=== PATIENT | male | born 1960 | race Caucasian/White ===

== ENCOUNTER → 2016-05-14 | Day surgery (SDC) | payer OTHER ==
[~2016-05-14] VITALS: Ht 182.9 cm; Wt 143.0 kg
[~2016-05-14] MED LIST: ACET-654 PO; BACITRACIN PWD 50,000 UNITS VIAL As Ordered ONE; BACITRACIN PWD 50,000 UNITS VIAL IR ONE; BUPIVACAINE HCL 0.5% 10 ML VIAL As Ordered ONE; BUPIVACAINE HCL 0.5% 30 ML VIAL SC ONE; GABA600T PO; GLUC1CAP9 PO; HYDR25TAB PO; LIDOCAINE 2% MDV 20 ML VIAL As Ordered ONE; LIDOCAINE 2% MDV 20 ML VIAL SC ONE; LOSA25TA8 PO; LR 1,000 ML IV SCH; MIDAZOLAM INJ 2 MG/2 ML VIAL (J2250) As Ordered ONE; NEOSPORIN GU IRRIG 20 ML VIAL IR ONE; ONDANSETRON 4MG/2ML VIAL (J2405) As Ordered ONE; PROPOFOL 200 MG/20 ML VIAL As Ordered ONE; SIMV20TA2 PO; TOPR100T PO; dexameTHASONE 4 MG/ML 1ML VIAL (J1100) As Ordered ONE; ePHEDrine SULFATE 25 MG/5 ML(5MG/ML) SYRINGE As Ordered ONE; ePHEDrine SULFATE 25 MG/5 ML(5MG/ML) SYRINGE IV SCH; fentaNYL 100 MCG/2 ML INJECTION (J3010) As Ordered ONE; fentaNYL 100 MCG/2 ML INJECTION (J3010) IV PRN
[2016-05-14] MEDS: PERCOCET 5MG/325MG TAB PO PRN ×2 (14:56→15:48)
[2016-05-14 15:50] VITALS: BP 136/87
--- NOTE | 2016-05-14 20:39 | RO ---
DATE OF PROCEDURE: 05/14/2016 PREPROCEDURE DIAGNOSIS: Posterior tibial tendon dysfunction left foot. 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 OPERATIVE PROCEDURE: Tenolysis posterior tibial tendon left foot. SURGEON: Rip George DPM SIDEWALK REPAIRER: None. ANESTHESIA: Spinal. HEMOSTASIS: 5 pneumatic tourniquet at 300 mmHg. IMPLANTS UTILIZED: None. DESCRIPTION OF PROCEDURE: On 05/14/2016, this 56-year-old white male was taken from his hospital room to the operating room and placed on the operating room table in the supine position. Following the induction of IV sedation, local and regional anesthesia, the left lower extremity was prepped and draped in the usual aseptic manner. After spinal anesthesia was obtained, a thigh pneumatic tourniquet was placed on the patient's thigh and inflated to 300 mmHg. Sterile draping was completed and the following procedure was performed. TENOLYSIS POSTERIOR TIBIAL TENDON LEFT FOOT: Attention was directed to the patient's left foot where an incision was made from the distal aspect of the medial malleolus down to the insertion point of the posterior tibial tendon at the navicular. Dissection was carried down. Numerous veins were noted which were either cut, clamped, electrocoagulated or tied as necessary. Dissection was carried down to the tendon sheath. The tendon sheath was then opened and the tendon was inspected from the insertion point into the navicular to the medial malleolus. The distal 6 cm of the insertion point had considerable adhesions of the posterior tibial tendon with citlaly of the hyperplastic synovium. This was debrided off the posterior tibial tendon and the tendon sheath had a synovectomy performed. The wound was flushed with copious amounts of dilute bacitracin, neomycin and polymyxin B solution. No other abnormalities were noted at the posterior tibial tendon. Attention was directed towards closure where the tendon sheath was closed with #4-0 Monocryl in a running fashion. Subcutaneous tissues were coapted and maintained using #4-0 Monocryl in a simple interrupted type fashion. Skin incision was coapted and maintained using #4-0 Prolene in simple interrupted and horizontal mattress type fashion. Attention was directed toward bandaging with a sterile compressive bandage applied consisting of Adaptic, 4 x 4, 4 x 4 splints, Armani, Kerlix and Coban. Thigh tourniquet was rapidly deflated. Instantaneous capillary refill time was noted in digits 1 through 5 of the patients left foot. The patient having apparently tolerated the surgical procedure well was taken from the OR to the recovery room, vital signs stable, patient afebrile for further monitoring by the anesthesia department. All surgical specimens from the operative procedure sent to pathology for gross microscopic examination. Postoperative instructions upon discharge.
== END | disposition home or self-care (01) ==
LOC: M SDC 08:54
PROVIDERS: ATTEND Podiatrist
DX: M76.822 Posterior tibial tendinitis, left leg (principal); M12.872 Other specific arthropathies, not elsewhere classified, left ankle and foot; I10 Essential (primary) hypertension; E78.5 Hyperlipidemia, unspecified; G89.29 Other chronic pain; S39.92XS Unspecified injury of lower back, sequela; J45.909 Unspecified asthma, uncomplicated; E66.9 Obesity, unspecified; G47.30 Sleep apnea, unspecified; E78.00 Pure hypercholesterolemia, unspecified; Z87.891 Personal history of nicotine dependence; Z79.899 Other long term (current) drug therapy
CPT/HCPCS: 27680; 88300; 97116; J0690; J2250; J2405; J3010

== ENCOUNTER → 2018-06-08 | Outpatient (REF) ==
[~2018-06-08] MED LIST changes: -ACET-654 PO; +ACET1TAB55 PO; -BACITRACIN PWD 50,000 UNITS VIAL As Ordered ONE; -BACITRACIN PWD 50,000 UNITS VIAL IR ONE; -BUPIVACAINE HCL 0.5% 10 ML VIAL As Ordered ONE; -BUPIVACAINE HCL 0.5% 30 ML VIAL SC ONE; -GABA600T PO; +GABA600T4 PO; -LIDOCAINE 2% MDV 20 ML VIAL As Ordered ONE; -LIDOCAINE 2% MDV 20 ML VIAL SC ONE; +LOSA25TA14 PO; -LOSA25TA8 PO; -LR 1,000 ML IV SCH; -MIDAZOLAM INJ 2 MG/2 ML VIAL (J2250) As Ordered ONE; -NEOSPORIN GU IRRIG 20 ML VIAL IR ONE; -ONDANSETRON 4MG/2ML VIAL (J2405) As Ordered ONE; -PROPOFOL 200 MG/20 ML VIAL As Ordered ONE; -TOPR100T PO; +TOPR100T13 PO; -dexameTHASONE 4 MG/ML 1ML VIAL (J1100) As Ordered ONE; -ePHEDrine SULFATE 25 MG/5 ML(5MG/ML) SYRINGE As Ordered ONE; -ePHEDrine SULFATE 25 MG/5 ML(5MG/ML) SYRINGE IV SCH; -fentaNYL 100 MCG/2 ML INJECTION (J3010) As Ordered ONE; -fentaNYL 100 MCG/2 ML INJECTION (J3010) IV PRN
--- NOTE | 2018-06-09 02:18 | REP ---
Clinical: Pain and disability. Technique: AP, lateral, coned-down views of the lumbosacral spine. Findings: Chronic levoconvex scoliosis is appreciated along with moderate/early advanced multilevel degenerative changes. Findings include endplate sclerosis, osteophytosis, and hypertrophic facet changes. Disc space narrowing at L5-S1 also identified. No acute fracture / compression injury or subluxation. Impression: Moderate/early advanced multilevel degenerative changes. Findings most pronounced at L5-S1. Electronically Signed by Dallas Echavarria MD 06/09/2018 02:09 A
--- NOTE | 2018-06-09 02:22 | REP ---
Clinical: Pain and disability. Technique: AP, lateral, bilateral oblique and sunrise views of the right knee. Findings: Moderate tricompartmental osteoarthritic degenerative changes are appreciated. Findings include subchondral sclerosis, joint space narrowing, marginal spurring. Lateral and sunrise views also demonstrate fraying along the anterior patellar margin as well as subchondral sclerosis along the posterior patellar surface and associated patellofemoral joint space narrowing. Evidence for prior orthopedic repair with surgical device along the distal lateral femoral metaphysis. No acute fracture dislocation. No obvious effusion. Impression: Moderate tricompartmental osteoarthritic degenerative changes. Electronically Signed by Dallas Echavarria MD 06/09/2018 02:13 A
== END ==
LOC: M SMT 11:41
PROVIDERS: ATTEND Internal Medicine
DX: Z02.89 Encounter for other administrative examinations (principal)

== ENCOUNTER → 2019-01-23 | Outpatient (CLI) | payer OTHER ==
[~2019-01-23] MED LIST changes: +TOPR100T PO; -TOPR100T13 PO
--- NOTE | 2019-01-23 18:57 | REP ---
Clinical: History of pulmonary embolus . Technique: Clay scale and color Doppler evaluation of the bilateral lower extremities using linear high frequency transducer. Findings: There is no evidence for deep venous thrombosis involving the right lower extremity. There is minimal echogenic nonocclusive material in the left popliteal vein which may represent chronic thrombus. Impression: 1. Right lower extremity without the venous thrombosis. 2. Left lower extremity suggests small amount of chronic nonocclusive thrombus in the popliteal vein. Electronically Signed by Dallas Echavarria MD 01/23/2019 06:49 P
== END ==
LOC: M RAD 09:45 → MERGE 10:30
PROVIDERS: ATTEND Internal Medicine Pulmonary Disease
DX: I26.09 Other pulmonary embolism with acute cor pulmonale (principal)

== ENCOUNTER → 2019-03-30 | Outpatient (CLI) | payer OTHER ==
[~2019-03-30] MED LIST changes: -SIMV20TA2 PO; +SIMV20TA22 PO
--- NOTE | 2019-03-30 15:31 | REP ---
Bilateral lower extremity Duplex Doppler venous ultrasound: Real time compression and duplex Doppler interrogation of the bilateral lower extremity deep venous system is performed. Bilaterally, the common femoral, superficial femoral and popliteal veins are fully compressible with transducer pressure and demonstrate normal spontaneous and phasic flow, without evidence of deep venous thrombosis. Impression: No evidence of deep venous thrombosis of the bilateral lower extremity femoral popliteal venous system. Electronically Signed by Rick Clay MD 03/30/2019 03:23 P
== END ==
LOC: M RAD 14:44
PROVIDERS: ATTEND Internal Medicine Pulmonary Disease
DX: I26.09 Other pulmonary embolism with acute cor pulmonale (principal)

== ENCOUNTER 2020-04-08 12:50 | Emergency (ER) | payer OTHER ==
[~2020-04-08] VITALS: Ht 182.9 cm; Wt 173.3 kg
[2020-04-08 14:18] LABS: BASO % 0.5 % (0.0-1.0); EOS # 0.2 10^3/uL (0.0-0.5); HEMATOCRIT 33.9 % (42.0-52.0); HEMOGLOBIN 10.6 g/dl (13.5-17.5); LYMPH % 16.6 % (24.0-44.0); MEAN CORPUSCULAR HEMOGLOBIN 28.6 pg (27.0-33.0); MEAN CORPUSCULAR HGB CONC 31.3 g/dl (32.0-36.5); MEAN CORPUSCULAR VOLUME 91.6 fl (80.0-96.0); MONO # 0.5 10^3/uL (0.0-0.8); NEUTROPHILS % 69.6 % (36.0-66.0); PLATELET COUNT, AUTOMATED 195 10^3/uL (150-450); WHITE BLOOD COUNT 5.8 10^3/uL (4.0-10.0)
[2020-04-08 14:36] LABS: INR 1.05; PROTHROMBIN TIME 13.9 SECONDS (12.5-14.3)
[2020-04-08 14:37] LABS: PARTIAL THROMBOPLASTIN TIME 31.4 SECONDS (24.2-38.5)
[2020-04-08 14:39] LABS: D-DIMER QUANT 1053.17 ng/ml (<500)
[2020-04-08 15:12] LABS: ALBUMIN 3.7 GM/DL (3.2-5.2); ALT/SGPT 35 U/L (12-78); BILIRUBIN,TOTAL 0.7 MG/DL (0.2-1.0); BLOOD UREA NITROGEN 14 MG/DL (7-18); C REACTIVE PROTEIN QUANTITATIV 1.21 MG/DL (0.00-0.30); CALCIUM LEVEL 8.9 MG/DL (8.8-10.2); CARBON DIOXIDE LEVEL 30 MEQ/L (21-32); CHLORIDE LEVEL 107 MEQ/L (98-107); CPK CREATINE PHOSPHOKINASE 246 U/L (39-308); FERRITIN 183 NG/ML (26-388); GLOMERULAR FILTRATION RATE > 60.0 (>49); GLUCOSE, FASTING 101 MG/DL (70-100); LDH LACTATE DEHYDROGENASE 211 U/L (87-241); MAGNESIUM LEVEL 2.3 MG/DL (1.8-2.4); MB/CK RELATIVE INDEX 2.03 (< OR =4); POTASSIUM SERUM 3.8 MEQ/L (3.5-5.1); SODIUM LEVEL 140 MEQ/L (136-145); TOTAL PROTEIN 6.9 GM/DL (6.4-8.2); TROPONIN I < 0.02 NG/ML (< 0.10)
[2020-04-08 16:00] LABS: NT-PRO BNP 572 PG/ML (<125)
--- NOTE | 2020-04-08 16:08 | REP ---
INDICATION: Coronavirus workup COMPARISON: None. TECHNIQUE: Portable AP view of the chest FINDINGS: The mediastinum and cardiac silhouette are within normal limits for portable technique. The lung sol demonstrate chronic changes and calcified granulomata. No focal consolidation, effusion, or pneumothorax. IMPRESSION: No definite acute consolidation or effusion. <Electronically signed by Dallas Echavarria > 04/08/20 [id number]
--- NOTE | 2020-04-08 16:48 | REP ---
INDICATION: ro dvt. COMPARISON: Comparison studies are from March 30, 2019 and January 23, 2019.. TECHNIQUE: Bilateral lower extremity duplex venous sonography. FINDINGS: The deep veins are anechoic and fully compressible from the groin to the popliteal fossa in the right lower extremity. Color flow imaging is homogeneous. Spectral Doppler interrogation demonstrates intact respiratory variation in flow and normal manual augmentation of flow. There is no evidence of deep vein thrombosis on the right. In the left lower extremity, the deep veins are anechoic and fully compressible from the groin to the distal femoral vein segment. The popliteal vein on the left is fully compressible. There is a thin linear echogenic structure in the popliteal vein on the left consistent with chronic DVT. I note that the prior study from January 23, 2019 showed a left popliteal vein DVT. No acute venous thrombosis is suspected today. IMPRESSION: Thin linear echogenic structure in the left popliteal vein consistent with changes of chronic DVT. No evidence of acute deep vein thrombosis on either side.. <Electronically signed by John Dsouza > 04/08/20 [id number]
[2020-04-08] MEDS ORDERED: FUROSEMIDE 100MG/10ML VIAL (J1940) IV ONE (17:30)
[2020-04-08] MEDS ORDERED: ISOVUE-370 76% 100ML VIAL As Ordered ONE (18:32)
--- NOTE | 2020-04-08 19:18 | REPVR ---
PROCEDURE INFORMATION: Exam: CT Angiography Chest With Contrast Exam date and time: 04/08/2020 6:42 PM Age: 59 years old Clinical indication: Shortness of breath; Additional info: SOB elev d dimer, covid neg TECHNIQUE: Imaging protocol: Computed tomographic angiography of the chest with intravenous contrast. 3D rendering (Not supervised by radiologist): MIP and/or 3D reconstructed images were created by the technologist. Radiation optimization: All CT scans at this facility use at least one of these dose optimization techniques: automated exposure control; mA and/or kV adjustment per patient size (includes targeted exams where dose is matched to clinical indication); or iterative reconstruction. Contrast material: ISOVUE 370; Contrast volume: 75 ml; Contrast route: INTRAVENOUS (IV); COMPARISON: CR PORTABLE CHEST X-RAY 04/08/2020 3:42 PM FINDINGS: Pulmonary arteries: There is a pulmonary embolus demonstrated in the distal portion of the intralobar pulmonary artery and proximal branch arteries of the left lower lobe. Aorta: There is mild atherosclerosis in the thoracic aorta. There is fusiform dilatation of the ascending thoracic aorta which measures 4 cm. maximally. There is no dissection or saccular component. Lungs: Reticular infiltrate subpleural aspect of the right middle lobe. Compressive atelectasis both lung bases. Pleural space: Small bilateral pleural effusions. Heart: Unremarkable. No cardiomegaly. No pericardial effusion. Lymph nodes: Unremarkable. No enlarged lymph nodes. Bones/joints: The spine demonstrates mild degenerative changes. Soft tissues: Unremarkable. IMPRESSION: 1. Reticular infiltrate subpleural aspect of the right middle lobe. Lungs otherwise clear. 2. Small bilateral pleural effusions. 3. There is fusiform dilatation of the ascending thoracic aorta which measures 4 cm. maximally. There is no dissection or saccular component. 4. There is a pulmonary embolus demonstrated in the distal portion of the intralobar pulmonary artery and proximal branch arteries of the left lower lobe. A critical call has been made to speak with the ordering physician/practitioner. This report will be amended once consultation has occurred. Electronically signed by: Je Harley On 04/08/2020 19:18:37 PM
[2020-04-08] MEDS ORDERED: APIXABAN 5 MG TAB (ELIQUIS) PO ONE (19:30)
[2020-04-08] MEDS ORDERED: ELIQ5TAB PO (20:36)
[2020-04-08] MEDS ORDERED: HYDR25TAB PO (20:37)
[2020-04-08 20:40] VITALS: BP 128/62
--- NOTE | 2020-04-09 06:17 | ECGEPIP ---
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
== END 2020-04-08 20:55 | disposition home or self-care (01) ==
LOC: M ED 12:50
DX: I26.99 Other pulmonary embolism without acute cor pulmonale (principal); I50.9 Heart failure, unspecified; I10 Essential (primary) hypertension; G47.30 Sleep apnea, unspecified; Z86.711 Personal history of pulmonary embolism; F17.200 Nicotine dependence, unspecified, uncomplicated; Z79.899 Other long term (current) drug therapy
CPT/HCPCS: 36600; 71045; 71275; 80053; 81001; 82550; 82553; 82728; 82803; 83605; 83615; 83735; 83880; 84145; 84484; 85025; 85379; 85384; 85610; 85730; 86140; 87040; 87486; 87581; 87633; 87798; 87880; 93005; 93970; 96374; 99284; J1940; Q9967

== ENCOUNTER → 2022-09-17 | Outpatient (CLI) | payer MEDICARE, OTHER ==
[~2022-09-17] MED LIST changes: +ELIQ5TAB PO; +HYDR-3490 PO; -HYDR25TAB PO; +LOSA25TA13 PO; -LOSA25TA14 PO
== END ==
LOC: M RAD 09:31
PROVIDERS: ATTEND Surgery
DX: I87.312 Chronic venous hypertension (idiopathic) with ulcer of left lower extremity (principal); L97.222 Non-pressure chronic ulcer of left calf with fat layer exposed

== ENCOUNTER → 2022-11-18 | Outpatient (CLI) | payer MEDICARE, OTHER | LOC: M RAD 07:07 | PROVIDERS: ATTEND Surgery Vascular Surgery | DX: I83.022 Varicose veins of left lower extremity with ulcer of calf (principal); R93.9 Diagnostic imaging inconclusive due to excess body fat of patient; L97.229 Non-pressure chronic ulcer of left calf with unspecified severity ==

== ENCOUNTER 2023-01-29 09:45 | Outpatient (RCR) | payer MEDICARE, OTHER | END 2023-02-02 | LOC: M PT 09:45 | PROVIDERS: ATTEND Physician Assistant | DX: I89.0 Lymphedema, not elsewhere classified (principal) ==

== ENCOUNTER → 2023-02-09 | Outpatient (CLI) | payer MEDICARE, OTHER ==
[~2023-02-09] MED LIST changes: +AMLO25TA PO; +DULO1CAP6 PO; +FLOM0.4C39 PO; +IRBE300T7 PO; +LABE200T5 PO; +LIDOCAINE 1% MDV 20ML VIAL As Ordered ONE; +LIDOCAINE W/EPINEPHRINE 1% 20ML VIAL As Ordered ONE; +MIDAZOLAM INJ 2MG/2ML VIAL As Ordered ONE; +OMEG1CAP85 PO; +ONETAB9 PO; +SODIUM BICARBONATE 8.4% INJ 50MEQ 50ML VIAL As Ordered ONE; +fentaNYL 100 MCG/2 ML INJECTION As Ordered ONE
[2023-02-09 07:50] VITALS: TEMP 98.4
[2023-02-09 08:14] LABS: HEMATOCRIT 34.3 % (42.0-52.0); HEMOGLOBIN 11.3 g/dl (13.5-17.5); MEAN CORPUSCULAR HEMOGLOBIN 28.5 pg (27.0-33.0); MEAN CORPUSCULAR HGB CONC 32.9 g/dl (32.0-36.5); MEAN CORPUSCULAR VOLUME 86.4 fl (80.0-96.0); PLATELET COUNT, AUTOMATED 224 10^3/uL (150-450); RED BLOOD COUNT 3.97 10^6/uL (4.30-6.10); WHITE BLOOD COUNT 5.8 10^3/uL (4.0-10.0)
[2023-02-09 08:35] LABS: BLOOD UREA NITROGEN 16 MG/DL (9-23); CALCIUM LEVEL 9.3 MG/DL (8.3-10.6); CARBON DIOXIDE LEVEL 28 MMOL/L (20-31); CHLORIDE LEVEL 104 MMOL/L (98-107); CREATININE FOR GFR 0.71 MG/DL (0.70-1.30); GLOMERULAR FILTRATION RATE > 60.0 (>49); GLUCOSE, FASTING 114 MG/DL (74-106); POTASSIUM SERUM 3.7 MMOL/L (3.5-5.1); SODIUM LEVEL 141 MMOL/L (136-145)
[2023-02-09 13:00] VITALS: BP 129/58; O2SAT 95
== END ==
LOC: M IRPRO 07:42
PROVIDERS: ATTEND Surgery Vascular Surgery
DX: I83.892 Varicose veins of left lower extremity with other complications (principal); I87.2 Venous insufficiency (chronic) (peripheral)
CPT/HCPCS: 36475; 80048; 85027; 99152; 99153; J2250; J3010

== ENCOUNTER 2023-02-10 14:30 | Outpatient (RCR) | payer MEDICARE, OTHER ==
[~2023-02-10 14:30] MED LIST changes: -LIDOCAINE 1% MDV 20ML VIAL As Ordered ONE; -LIDOCAINE W/EPINEPHRINE 1% 20ML VIAL As Ordered ONE; -MIDAZOLAM INJ 2MG/2ML VIAL As Ordered ONE; -SODIUM BICARBONATE 8.4% INJ 50MEQ 50ML VIAL As Ordered ONE; -fentaNYL 100 MCG/2 ML INJECTION As Ordered ONE
== END 2023-03-04 ==
LOC: M PT 14:30
PROVIDERS: ATTEND Physician Assistant
DX: I89.0 Lymphedema, not elsewhere classified (principal)

== ENCOUNTER → 2023-02-12 | Outpatient (CLI) | payer MEDICARE, OTHER | LOC: M WHC 07:21 | PROVIDERS: ATTEND Surgery Vascular Surgery | DX: Z98.890 Other specified postprocedural states (principal); I83.892 Varicose veins of left lower extremity with other complications; I87.2 Venous insufficiency (chronic) (peripheral) ==

== ENCOUNTER → 2023-05-28 | Outpatient (CLI) | payer MEDICARE, OTHER ==
[~2023-05-28] MED LIST changes: +E-Z-GAS II EFFERVESCENT PACKET (SODIUM BICARB./CITRIC ACID/SIMETHICONE) As Ordered ONE; +E-Z-HD 98% w/w 340GM SUSP BTL As Ordered ONE; +E-Z-PAQUE 96% w/w SUSP 176GM BTL As Ordered ONE; +IRBE300T25 PO; -IRBE300T7 PO
== END ==
LOC: M RAD 10:03
PROVIDERS: ATTEND Physician Assistant Medical
DX: R13.10 Dysphagia, unspecified (principal); K44.9 Diaphragmatic hernia without obstruction or gangrene

== ENCOUNTER 2023-07-02 10:56 | Day surgery (SDC) | payer MEDICARE, OTHER ==
[~2023-07-02] VITALS: Ht 180.3 cm; Wt 171.6 kg
[~2023-07-02 10:56] MED LIST changes: +BENA25CA4 PO; -E-Z-GAS II EFFERVESCENT PACKET (SODIUM BICARB./CITRIC ACID/SIMETHICONE) As Ordered ONE; -E-Z-HD 98% w/w 340GM SUSP BTL As Ordered ONE; -E-Z-PAQUE 96% w/w SUSP 176GM BTL As Ordered ONE; +GLUC1CAP10 PO; +NS 1,000 ML IV ONE
[2023-07-02] MEDS ORDERED: fentaNYL 100 MCG/2 ML INJECTION As Ordered ONE (12:04)
[2023-07-02] MEDS ORDERED: propofoL 200 MG/20 ML VIAL As Ordered ONE (12:05)
[2023-07-02] MEDS ORDERED: dexmedeTOMIDine (4MCG/ML)200MCG/50ML BTL (PRECEDEX) As Ordered ONE (12:46)
[2023-07-02 14:20] VITALS: BP 154/84; TEMP 97.9; O2SAT 93
== END 2023-07-02 14:24 | disposition home or self-care (01) ==
LOC: M OPP 10:56
PROVIDERS: ATTEND Internal Medicine Gastroenterology
DX: Z12.11 Encounter for screening for malignant neoplasm of colon (principal); Z86.010 Personal history of colon polyps; D12.3 Benign neoplasm of transverse colon; D12.4 Benign neoplasm of descending colon; D12.5 Benign neoplasm of sigmoid colon; K64.8 Other hemorrhoids; K22.89 Other specified disease of esophagus; R13.10 Dysphagia, unspecified; K31.A0 Gastric intestinal metaplasia, unspecified; G47.30 Sleep apnea, unspecified; Z79.01 Long term (current) use of anticoagulants; Z79.02 Long term (current) use of antithrombotics/antiplatelets; Z79.1 Long term (current) use of non-steroidal anti-inflammatories (NSAID); Z79.83 Long term (current) use of bisphosphonates; Z79.891 Long term (current) use of opiate analgesic; Z79.899 Other long term (current) drug therapy
CPT/HCPCS: 43239; 45385; 88305; J3010

== ENCOUNTER 2023-08-18 10:45 | Outpatient (RCR) | payer MEDICARE, OTHER ==
[~2023-08-18 10:45] MED LIST changes: -NS 1,000 ML IV ONE
== END 2023-09-03 ==
LOC: M PT 10:45
PROVIDERS: ATTEND Physician Assistant
DX: I89.0 Lymphedema, not elsewhere classified (principal)

== ENCOUNTER → 2023-08-31 | Outpatient (CLI) | payer MEDICARE, OTHER | LOC: M SLEEP 20:00 | PROVIDERS: ATTEND Internal Medicine Pulmonary Disease | DX: G47.33 Obstructive sleep apnea (adult) (pediatric) (principal) ==

== ENCOUNTER → 2024-02-02 | Outpatient (POV) | payer MEDICARE, OTHER ==
[~2024-02-02] MED LIST changes: +GABA-1490 PO; -GABA600T4 PO; +OMEG-28 PO; -OMEG1CAP85 PO
[2024-02-02 14:50] VITALS: BP 134/63; O2SAT 96
== END ==
LOC: M IRPOV 14:41
PROVIDERS: ATTEND Radiology Diagnostic Radiology
DX: I87.313 Chronic venous hypertension (idiopathic) with ulcer of bilateral lower extremity (principal); I89.0 Lymphedema, not elsewhere classified; Z79.01 Long term (current) use of anticoagulants; Z79.899 Other long term (current) drug therapy; Z86.718 Personal history of other venous thrombosis and embolism

== ENCOUNTER 2024-02-18 09:15 | Outpatient (RCR) | payer MEDICARE, OTHER | END 2024-03-04 | LOC: M PT 09:15 | PROVIDERS: ATTEND Surgery | DX: I89.0 Lymphedema, not elsewhere classified (principal); I87.313 Chronic venous hypertension (idiopathic) with ulcer of bilateral lower extremity ==

== ENCOUNTER → 2024-03-08 | Outpatient (CLI) | payer MEDICARE, OTHER ==
[2024-03-08 13:55] LABS: BLOOD UREA NITROGEN 23 MG/DL (9-23); CALCIUM LEVEL 9.4 MG/DL (8.3-10.6); CARBON DIOXIDE LEVEL 34 MMOL/L (20-31); CHLORIDE LEVEL 104 MMOL/L (98-107); CREATININE FOR GFR 0.67 MG/DL (0.70-1.30); GLOMERULAR FILTRATION RATE > 60.0 (>49); GLUCOSE, FASTING 103 MG/DL (74-106); SODIUM LEVEL 140 MMOL/L (136-145)
== END ==
LOC: M LAB 12:23
PROVIDERS: ATTEND Radiology Diagnostic Radiology
DX: I87.003 Postthrombotic syndrome without complications of bilateral lower extremity (principal)

== ENCOUNTER → 2024-03-13 | Outpatient (CLI) | payer MEDICARE, OTHER ==
[~2024-03-13] MED LIST changes: +ISOVUE-370 76% 100ML VIAL As Ordered ONE
== END ==
LOC: M RAD 13:11
PROVIDERS: ATTEND Radiology Diagnostic Radiology
DX: I87.093 Postthrombotic syndrome with other complications of bilateral lower extremity (principal); R59.0 Localized enlarged lymph nodes; R16.2 Hepatomegaly with splenomegaly, not elsewhere classified
CPT/HCPCS: 74177; 93970; Q9967

== ENCOUNTER 2024-05-25 08:56 | Outpatient (RCR) | payer MEDICARE, OTHER ==
[~2024-05-25 08:56] MED LIST changes: +FURO40TA2; -ISOVUE-370 76% 100ML VIAL As Ordered ONE; +POTA10CA70
== END 2024-06-02 ==
LOC: M PT 08:56
PROVIDERS: ATTEND Surgery
DX: I89.0 Lymphedema, not elsewhere classified (principal)

== ENCOUNTER 2024-06-23 12:23 | Outpatient (RCR) | payer MEDICARE, OTHER | END 2024-07-03 | LOC: M PT 12:23 | PROVIDERS: ATTEND Surgery | DX: I89.0 Lymphedema, not elsewhere classified (principal) ==

== ENCOUNTER 2024-07-17 12:13 | Outpatient (RCR) | payer MEDICARE, OTHER ==
[~2024-07-17 12:13] MED LIST changes: -FLOM0.4C39 PO; +TAMS-18 PO
== END 2024-08-02 ==
LOC: M PT 12:13
PROVIDERS: ATTEND Surgery
DX: I89.0 Lymphedema, not elsewhere classified (principal)

== ENCOUNTER → 2024-10-04 | Outpatient (CLI) | payer MEDICARE, OTHER ==
[~2024-10-04] MED LIST changes: +CARV6.25 PO; +FERR325T19 PO; +JARD1TAB PO; +LOSA50TA28 PO; +NEUR300C PO; +ROSU20TA86 PO; +SPIR-10 PO; +TORS10TA3 PO
[2024-10-04 13:18] LABS: CALCIUM LEVEL 8.9 MG/DL (8.3-10.6); CARBON DIOXIDE LEVEL 24 MMOL/L (20-31); CHLORIDE LEVEL 103 MMOL/L (98-107); CREATININE FOR GFR 0.80 MG/DL (0.70-1.30); GLOMERULAR FILTRATION RATE > 90.0 (>49); POTASSIUM SERUM 3.4 MMOL/L (3.5-5.1); SODIUM LEVEL 140 MMOL/L (136-145)
== END ==
LOC: M WUC 08:35
PROVIDERS: ATTEND Physician Assistant
DX: I50.32 Chronic diastolic (congestive) heart failure (principal)

== ENCOUNTER → 2024-11-02 | Outpatient (RCR) | payer MEDICARE, OTHER | LOC: M PT 10-04 10:27 | PROVIDERS: ATTEND Surgery | DX: I89.0 Lymphedema, not elsewhere classified (principal) ==

== ENCOUNTER 2024-11-29 08:02 | Outpatient (RCR) | payer MEDICARE, OTHER | END 2024-12-03 | LOC: M PT 08:02 | PROVIDERS: ATTEND Surgery | DX: I89.0 Lymphedema, not elsewhere classified (principal) ==

== ENCOUNTER → 2025-01-18 | Outpatient (CLI) | payer MEDICARE, OTHER ==
[2025-01-18 12:48] LABS: CALCIUM LEVEL 9.6 MG/DL (8.3-10.6); CARBON DIOXIDE LEVEL 32 MMOL/L (20-31); CHLORIDE LEVEL 102 MMOL/L (98-107); CREATININE FOR GFR 0.86 MG/DL (0.70-1.30); GLOMERULAR FILTRATION RATE > 90.0 (>49); POTASSIUM SERUM 4.6 MMOL/L (3.5-5.1); SODIUM LEVEL 142 MMOL/L (136-145)
== END ==
LOC: M WUC 08:35
PROVIDERS: ATTEND Physician Assistant
DX: I50.32 Chronic diastolic (congestive) heart failure (principal)